=== PATIENT | female | born 1985 | race Caucasian/White ===

== ENCOUNTER 2022-03-17 15:33 | Emergency (ER) | payer SELFPAY ==
--- OUTSIDE RECORDS SUMMARY | 2022-03-17 15:41 | XMS REPORT | Continuity of Care Document ---
:1985 Author Organization [facility] t Address [address] [place] [address] Dr. Bour[address] [place] [address] Care Team Providers Name Role Phone Batsheva Martines Attending Clinician [phone] Nikhil CARROLL, Gage Mae Attending Clinician Ramila Patterson Attending Clinician Nikhil CARROLL, Gage Mae Admitting Clinician Andrew Edwards Admitting Clinician Payers Payer Name Policy Type Policy Number Effective Date Expiration Date S ource Problems Condition Condition Condition Status Onset Resolution Last Treating Co mments Source Name Details Category Date Date Treatment Clinician Date Routine Routine Disease Active Univers 8-23 [place] [address] [place] [address] Disease Active Univers (spontaneo (spontaneo 7-24 [place] vaginal [place] [facility] Single Single Disease Active Univers live live 7-24 it y of 00:00: [address] Obesity Obesity Disease Active Univers (BMI (BMI 7-23 ity of 30-39.9) 30-39.9) 00:00: [address] 34 weeks 34 weeks Disease Active Unive rs gestation gestation 7-22 ity of of of 00:00: [place] 00 [facility] UTI in UTI in Disease Active Overview: Univer s 4-25 X2, CHAITANYA ity of 00:00: now neg [address] Supervisio Supervisio Disease Active U nivers n of n of 4-22 ity of high-risk high-risk 00:[place] 00 Medi juan manuel with with Branch insufficie insufficie nt nt care care History of History of Disease Active U nivers depression depression 4-22 it y of 00:00: [address] SDH SDH Diagnosis Active 2016-042017-02-03 Mem oria Active 0-02 23:24:00 l 01/25/2017 00:00: Dayron brady [address] NONTRAUMAT NONTRAUMA Diagnosis Active 2017-02-03 Memoria IC ACUTE TIC ACUTE 23:24:00 l SUBDURAL SUBDURAL Dayron brady HEMORRHAGE HEMORRHAGE Active [facility] [place] [facility] Allergies, Adverse Reactions, Alerts This patient has no known allergies or adverse reactions. Social History Social Habit Start Date Stop Date Quantity Comments Source Alcohol intake [facility] ASSERTION [facility] Sex Assigned At [facility] Social History 2017-01-26 2017-01-26 [facility] 08:18:25 08:18:25 Smoking Status Start Date Stop Date Source Never smoker [facility] Medications Ordered Filled Start Stop Current Ordering Indication Dosage Frequency Signature Comments Components Source Medication Medication Date Date Medication? Clinician (SIG) Name Name buPROPion Yes 150mg 150 mg, Univ ers XL 7-24 Oral, ity of (WELLBUTRIN 14:00: [place] XL) tablet 00 First dose Med ical 150 mg on Wed Branch 11/16/18 at 0900, Until Discontinu ed, Routine zolpidem Yes 5mg 5 mg, Univers (AMBIEN) 7-24 Oral, ity of tablet 5 mg 02:10: QHSPRN, [place] 44 Starting Medical Tue Branch 11/15/18 at 2110, Until Discontinu ed, Routine, Insomnia Iron Fum & 2019- Yes [id number] 1{capsu Take 1 Univers P-FA-Vit B - le} capsule by ity of & C No.9 00:00: mouth [place] (INTEGRA 00 daily. Medical PLUS) 125 Branch mg iron- 1 mg Cap docusate 2018- Yes [id number] 240mg Take 1 Un griselda calcium 240 7-24 capsule by it y of mg capsule 00:00: mouth [place] 00 daily as Medical needed for Branch Constipati on. buPROPion Yes [id number] 150mg Take 1 Univers XL 7-24 tablet by ity of (WELLBUTRIN 00:00: mouth [place] XL) 150 mg 00 daily. Medical 24 hr Branch tablet ibuprofen Yes [id number] 600mg Take 1 U nivers 600 mg 7-24 tablet by ity of tablet 00:00: mouth [place] 00 every 6 Medical (six) Branch hours as needed for Pain (scale 1-3) or Pain (scale 4-6) (Pain). Take with food or milk. Iron Fum & Yes [id number] 1{capsu Take 1 Univers P-FA-Vit B 7-24 le} capsule by ity of & C No.9 00:00: mouth [place] (INTEGRA 00 daily. Medical PLUS) 125 Branch mg iron- 1 mg Cap docusate Yes [id number] 240mg Take 1 Un griselda calcium 240 7-24 capsule by it y of mg capsule 00:00: [place] 00 daily as Medical needed for Branch Constipati on. buPROPion Yes [id number] 150mg Take 1 Univers XL 7-24 tablet by ity of (WELLBUTRIN 00:00: mouth [place] XL) 150 mg 00 daily. Medical 24 hr Branch tablet ibuprofen Yes [id number] 600mg Take 1 U nivers 600 mg 7-24 tablet by ity of tablet 00:00: mouth [place] 00 every 6 Medical (six) Branch hours as needed for Pain (scale 1-3) or Pain (scale 4-6) (Pain). Take with food or milk. Iron Fum & Yes [id number] 1{capsu Take 1 Univers P-FA-Vit B 7-24 le} capsule by ity of & C No.9 00:00: mouth [place] (INTEGRA 00 daily. Medical PLUS) 125 Branch mg iron- 1 mg Cap docusate Yes [id number] 240mg Take 1 Un griselda calcium 240 7-24 capsule by it y of mg capsule 00:00: mouth [place] 00 daily as Medical needed for Branch Constipati on. buPROPion Yes [id number] 150mg Take 1 Univers XL 7-24 tablet by ity of (WELLBUTRIN 00:00: mouth [place] XL) 150 mg 00 daily. Medical 24 hr Branch tablet ibuprofen Yes [id number] 600mg Take 1 U nivers 600 mg -24 tablet by ity of tablet 00:00: mouth [place] 00 every 6 Medical (six) Branch hours as needed for Pain (scale 1-3) or Pain (scale 4-6) (Pain). Take with food or milk. buPROPion 2019- No [id number] 150mg Take 1 Univers XL 11-16 tablet by ity of (WELLBUTRIN 00:00: 00:00 [place] XL) 150 mg 00 :00 daily. Medical 24 hr Branch tablet docusate 2019- No [id number] 240mg Take 1 U nivers calcium 240 11-16 capsule by i ty of mg capsule 00:00: 00:00 mouth once [place] 00 :00 daily as Medical needed for Branch Constipati on. ibuprofen 2019- No [id number] 600mg Take 1 Univers 600 mg 11-16 tablet by ity of tablet 00:00: 00:00 mouth [place] 00 :00 every 6 Medical (six) Branch hours as needed for Pain (scale 1-3) or Pain (scale 4-6) (Pain). Take with food or milk. Iron Fum & 2019- No [id number] 1{capsu Take 1 Univers P-FA-Vit B 11-16 le} capsule by it y of & C No.9 00:00: 00:00 mouth [place] (INTEGRA 00 :00 daily. Medical PLUS) 125 Branch mg iron- 1 mg Cap diphenhydrA Yes 25mg 25 mg, Univ ers MINE 11-15 Oral, ity of (BENADRYL) 17:18: Q6HPRN, [place] tablet 25 17 Starting Medica l mg [facility] 11/15/18 at 1218, Until Discontinu ed, Routine, Sleep, Itching ondansetron Yes 4mg 4 mg, Slow Univers (ZOFRAN 11-15 IV Push, ity of (PF)) 17:18: Q8HPRN, [place] injection 4 17 Starting Medi juan manuel mg [facility] [place] 11/15/18 at 1218, Until Discontinu ed, Routine, Nausea and Vomiting (N/V) simethicone Yes 160mg 160 mg, Un griselda (GAS 11-15 Oral, ity of RELIEF) 17:18: PC+HSPRN, [place] chewable 17 Starting Medical tablet 160 Tue Branch mg 11/15/18 at 1218, Until Discontinu ed, Routine, Gas docusate 2019-0 Yes 240mg 240 mg, Unive rs calcium 11-15 Oral, ity of (SURFAK) 17:18: QDAILYPRN, [place] capsule 240 17 Starting Medi juan manuel mg Tue Branch 11/15/18 at 1218, Until Discontinu ed, Routine, Constipati on magnesium 2018-0 Yes 30mL 30 mL, Univer s hydroxide 11-15 Oral, ity of (MILK OF 17:18: QDAILYPRN, [place] MAGNESIA) 17 Starting Medica l 400 mg/5 mL [facility] Branch suspension 11/15/18 at 30 mL 1218, Until Discontinu ed, Routine, Constipati on acetaminoph 0 Yes 650mg 650 mg, Un griselda en 11-15 Oral, ity of (TYLENOL) 17:18: Q6HPRN, [place] tablet 650 16 Starting Medic al mg e Branch 11/15/18 at 1218, Until Discontinu ed, Routine, Pain (scale 1-3) benzocaine- 2018-0 Yes Topical, Un griselda menthol 11-15 PRN, ity of (DERMOPLAST 17:18: [place] 20-0.5 % 16 e Medical topical 11/15/18 at Branch spray 1218, Until Discontinu ed, Routine, Perineum discomfort ibuprofen 2019-0 Yes 600mg 600 mg, Univ ers (IBU) 11-15 Oral, ity of tablet 600 15:26: Q6HPRN, [place] mg 24 Starting Medical Tue Branch 11/15/18 at 1026, Until Discontinu ed, Routine, Pain (scale 4-6) acetaminoph 2019- No 650mg 650 mg, U nivers en 11-15 0723 Oral, ity of (TYLENOL) 15:17: 17:18 Q6HPRN, [place] tablet 650 52 :22 Starting Medic al mg e Branch 11/15/18 at 1017, Until 11/15/18 at 1218, Routine, Pain (scale 4-6) lactated 2019- No 500mL at 999 Unive rs ringers IV 11-15 mL/hr, 500 it y of infusion 13:30: 13:11 mL, IV [place] 500 mL 00 :00 Infusion, Medical ONCE, 1 Branch dose, 11/15/18 at 0830, Routine proMETHazin 2018- No 12.5mg 12.5 mg, Univers e 11-15 IV ity of (PHENERGAN) 09:15: 11:21 Piggyback, [place] 12.5 mg in 00 :00 ONCE, 1 Medica l NaCl 0.9% dose, Tue Branc h (NS) 50 mL 11/15/18 at IV 0415, piggyback Routine nalbuphine 2018- No 10mg 10 mg, Univ ers (NUBAIN) 11-15 Intravenou ity of injection 09:15: 09:58 s, ONCE, 1 [place] 10 mg 00 :00 dose, Tu Medical 11/15/18 at Branch 0415, Routine LR 1000 mL 2018- No 2mU/min 2 Uni vers + oxytocin 11-15 brad-unit it y of 20 units IV 06:01: 17:18 s/min (6 [place] Solution 54 :22 mL/hr), at Medic al 6 mL/hr, Branch IV Infusion, TITRATE, Starting 11/15/18 at 0101, Until 11/15/18 at 1218, KENY, Oxytocin Induction / Augmentati on of Labor. D5W-LR IV 2018- No 1000mL at 125 Uni vers infusion 11-15 mL/hr, IV ity o f 1,000 mL 04:00: 17:18 Infusion, [place] 00 :22 CONTINUOUS Medical , Starting Branch 11/14/18 at 2300, Until Wed11/15/18 at 1218, Routine sodium 2018- No 30mL 30 mL, Univers citrate-cit 11-15 Oral, ity of brien acid 03:55: 13:10 PRE-PROCED [place] (BICITRA) 55 :00 URE ONCE, Medic al 500-334 1 dose, Branch mg/5 mL Starting solution 30 Mon mL 11/14/18 at 2255, Until Discontinu ed, Routine, Surgery/Pr ocedure buPROPion 2019- No [id number] 150mg Take 1 Univers XL 6-12 24 tablet by ity of (WELLBUTRIN 00:00: 00:[place] XL) 150 mg 00 :00 daily. Medical 24 hr Branch tablet PNV 67-iron 2019- No [id number] 1{each} Take 1 Univers ps-folate 08-30 Each by ity of no.1-dha 00:00: 00:00 mouth [place] (VITAFOL 00 :00 daily. Medical ULTRA) 29 Branch mg iron- 1 mg-200 mg Cap Nitrofurant 2019- No [id number] 100mg Take 1 Univers oin&Nit. 08-18 capsule by ity of Macrocryst 00:00: 00:00 mouth 2 [place] (MACROBID) 00 :00 (two) Medical 100 mg times Branch capsule daily. tramadol 2016-04 No Notes: Not Mem oria hydrochlori 0-05 to exceed l de 50 MG 14:55: 400mg/day. Her duran Oral Tablet 00 (Same As: Ultram) ondansetron 2016-04 Yes 4 mg = 1 Me moria 4 mg oral 0-05 tab, PO, l tablet 14:06: Q8H, PRN [place] 00 Nausea, # 90 tab, 0 Refill(s) Zofran 2016-04 No Notes: Memoria 0-05 (Same as: l 13:47: Zofran) [place] 00 tramadol 2016-04 Yes 50 mg = 1 Drew koby hydrochlori 0-05 tab, PO, l de 50 MG 11:11: Q12H, PRN Herm yong Oral Tablet 00 Pain Score 4-6, X 14 day, # 28 tab, 0 Refill(s) Levetiracet 2016-04 Yes 500 mg = 1 Memoria am 500 MG 0-05 tab, PO, l Oral Tablet 11:06: Q12H, # 10 [place] 00 tab, 0 Refill(s) celecoxib 2016-04 Yes 200 mg = 1 Me moria 200 mg oral 0-05 cap, PO, l capsule 11:06: BID, # 28 Yuliana nn 00 cap, 0 Refill(s) remove 2016-04 No Notes: Memoria patch 0-05 Remove l 02:00: patch 12 [place] 00 hours after applicatio n each day. Lidocaine 2016-04 No Notes: Memori a 0.05 MG/MG 0-04 Apply only l Transdermal 15:00: once for He rmann Patch 00 up to 12 hours in a 24-hour period (12 hours on and 12 hours off). (Same as: Lidoderm) "Remove old patch before applicatio n of new patch" Celebrex 2016-04 No Notes: Memoria 0-04 NSAID. l 14:00: Please [place] 00 check indication . Not for seizure. (Same As: CeleBREX) tramadol 2016-04 No Notes: Not Mem oria hydrochlori 0-04 to exceed l de 50 MG 13:44: 400mg/day. Her duran Oral Tablet 00 (Same As: Ultram) heparin 2016-04 No Notes: Memoria sodium, 0-04 porcine l porcine 13:00: heparin [place] 2500 UNT/ML 00 Injectable Solution Acetaminoph 2016-04 No Notes: Do M emoria en 325 MG / 0-04 not exceed l Hydrocodone 02:11: 4gm/day of [place] Bitartrate 00 acetaminop 10 MG Oral hen. (Same Tablet as: [place] [[place] 325/10) ] Morphine 2016-04 No 2 mg, 0.5 Drew koby 0-03 mL, Route: l 18:43: IVP, Drug [place] 00 form: SOLN, Q2H, Dosing Weight 61.364, kg, PRN Pain Score 7-10, Start date: 01/26/17 13:43:00 CDT, Duration: 30 day, Stop date: 02/25/17 13:42:00 CDT Tylenol 2016-04 No Notes: Max Drew koby 0-03 acetaminop l 17:00: hen 4000 [place] 00 mg/day (4 gm/day). (Same as: Tylenol Extra Strength) Dilaudid 2016-04 No Notes: Memoria 0-03 Same as: l 15:38: Dilaudid [place] 00 tramadol 2016-04 No 50 mg, 1 Memor ia hydrochlori 0-03 tab, l de 50 MG 14:28: Route: PO, Her duran Oral Tablet 00 Drug form: TAB, Q4H, Dosing Weight 61.364, kg, PRN Pain Score 4-6, Start date: 01/26/17 9:28:00 CDT, Duration: 30 day, Stop date: 02/25/17 9:27:00 CDT influenza 2016-04 No Notes: Memori a virus 0-03 (Same as: l vaccine, 14:00: Fluzone Dayron n inactivated 00 Quadrivale nt, Fluarix Quadrivale nt) For 3 years of age and older (0.5 mL IM) Shake well before use Saline 2016-04 No Notes: Memoria Flush 0.9% 0-03 Same as: l 14:00: BD [place] 00 Posiflush Sterile Docusate 2016-04 No Notes: Memoria 0-03 (Same as: l 14:00: Colace) [place] (Do Not Crush) sennosides, 2016-04 No Notes: Drew koby RETIREMENT 0-03 (Same as: l 14:00: Senokot) [place] Levetiracet 2016-04 No Notes: Drew koby am 0-03 (Same l 14:00: as:Keppra) [place] Ondansetron 2016-04 No Notes: Drew koby 0-03 (Same as: l 07:27: Zofran) [place] 00 MEDICATION WASTE Product Size: 4 mg Product Wasted: ___ mg Dextrose 2016-04 No 6.25 gm, Memor ia 50% Syringe 0-03 12.5 mL, l 06:44: Route: Mcgrann IVP, Drug Form: INJ, kg, PRN, PRN Abnormal Lab Result, Start date: 01/26/17 1:44:00 CDT, Duration: 30 day, Stop date: 02/25/17 1:43:00 CDT Regular 2016-04 No 60 units) Drew koby Insulin, 0-03 WASTE: F/P l Human 100 06:44: - Black; E He rmann UNT/ML 00 - Injectable Municipal Solution Trash Bin Stable for 28 days at room temperatur e Expires in days from ____Date Saline 2016-04 No Notes: Memoria Flush 0.9% 0-03 Same as: l 06:44: BD [place] 00 Posiflush Sterile Ondansetron 2016-04 No Notes: Drew koby 0-03 (Same as: l 06:44: Zofran) Chalino MEDICATION WASTE Product Size: 4 mg Product Wasted: ___ mg Morphine 2016-04 No Notes: Memoria 0-03 (Same l 06:44: as:MORPhin Mcgrann 00 e Sulfate) Acetaminoph 2016-04 No Notes: Drew koby en 325 MG / 0-03 (Same as: l Hydrocodone 06:44: [place] Yuliana nn Bitartrate 00 325/5) Do 5 MG Oral not exceed Tablet 4gm/day of acetaminop hen. sodium 2016-04 No 1,000 mL, Memori a chloride 0-03 Rate: 100 l 0.9% 1000 06:44: ml/hr, Dayron n ml INJ 00 Infuse 1,000 mL over: 10 hr, Route: IV, Total Volume: 1,000, Start date: 01/26/17 1:44:00 CDT, Duration: 30 day, Stop date: 02/25/17 1:43:00 CDT Morphine 2016-04 No Notes: Memoria 0-03 (Same l 06:13: as:MORPhin Mcgrann 00 e Sulfate) Zofran 2016-04 No Notes: Memoria 0-03 (Same as: l 06:13: Zofran) [place] 00 MEDICATION WASTE Product Size: 4 mg Product Wasted: ___ mg Keppra 2016-04 No Notes: Memoria 0-03 Same as l 06:13: Keppra Mix with 100 mL NS, LR or D5W MEDICATION WASTE Product Size: 500 mg Product Wasted: ___ mg Immunizations Ordered Filled Immunization Date Status Comments [facility] e Immunization Name Name Tdap 2018-10-18 Completed [facility] 00:00:00 [facility] Tdap 2018-10-18 Completed University 00:00:00 [facility] Tdap 2018-10-18 Completed [facility] 00:00:00 [facility] Influenza Virus 2018-08-15 Completed Universit y of Vaccine Quad .5 mL 00:00:00 [facility] 6+ MO [place] Influenza Virus 2018-08-15 Completed Universit y of Vaccine Quad .5 mL 00:00:00 [facility] IM 6+ MO Branch Influenza Virus 2018-08-15 Completed Universit y of Vaccine Quad .5 mL 00:00:00 [facility] IM 6+ MO Branch influenza virus 2017-01-26 Completed [facility] [place] vaccine, 13:38:00 inactivated Vital Signs Vital Name Observation Time Observation Value Comments Source Body height 2018-12-16 14:57:00 149.9 cm Universi ty of [facility] Body weight 2018-12-16 14:57:00 68.04 kg Universi ty of [facility] BMI 2018-12-16 14:57:00 30.30 kg/m2 Universi ty of [facility] Systolic blood 2018-12-16 14:57:00 115 mm[Hg] Univer sity of pressure [facility] Diastolic blood 2018-12-16 14:57:00 77 mm[Hg] Unive rsity of pressure [facility] Heart rate 2018-12-16 14:57:00 93 /min Universi ty of [facility] Body temperature 2018-12-16 14:57:00 36.67 Leanne [facility] ersity of [facility] Respiratory rate 2018-12-16 14:57:00 16 /min Univ ersity of [facility] Systolic blood 2018-11-17 13:00:00 123 mm[Hg] Univer sity of pressure [facility] Diastolic blood 2018-11-17 13:00:00 81 mm[Hg] Unive rsity of pressure [facility] Heart rate 2018-11-17 13:00:00 85 /min Universi ty of [facility] Body temperature 2018-11-17 13:00:00 36.61 Leanne [facility] ersity of [facility] Respiratory rate 2018-11-17 13:00:00 17 /min Univ [facility] Oxygen saturation in 2018-11-17 13:00:00 99 /min [facility] Arterial blood by [facility] Pulse oximetry Branch Body weight 2018-11-15 05:12:00 72.485 kg Universi ty of [facility] BMI 2018-11-15 05:12:00 32.26 kg/m2 Universi ty of [facility] Body height 2018-11-15 03:12:00 149.9 cm Universi ty of [facility] Temperature Oral (F) 2017-01-28 13:29:00 97.6 F [facility] [place] Heart Rate 2017-01-28 13:29:00 [facility] [place] Respitory Rate 2017-01-28 13:29:00 Memori al [place] Systolic (mm Hg) 2017-01-28 13:29:00 Drew rial [place] Diastolic (mm Hg) 2017-01-28 13:29:00 Mem orial [place] Heart Rate 2017-01-28 09:00:00 [facility] [place] Systolic (mm Hg) 2017-01-28 09:00:00 Drew rial [place] Diastolic (mm Hg) 2017-01-28 09:00:00 Mem orial [place] Respitory Rate 2017-01-28 09:00:00 Memori al [place] Temperature Oral (F) 2017-01-28 09:00:00 98.2 F [facility] [place]gr[place] Respitory Rate 2017-01-28 05:00:00 Memori al [place] Systolic (mm Hg) 2017-01-28 05:00:00 Drew rial [place] Diastolic (mm Hg) 2017-01-28 05:00:00 Mem orial [place] Heart Rate 2017-01-28 05:00:00 [facility] [place] Temperature Oral (F) 2017-01-28 05:00:00 98.8 F [facility] [place] Weight 2017-01-26 08:13:00 [facility] [place] BMI Calculated 2017-01-26 08:13:00 Memori al [place] Height 2017-01-26 08:13:00 [facility] Procedure Date / Time Performing Clinician Source Performed CBC WITH DIFFERENTIAL 2018-11-16 09:01:00 [facility] VENOUS CORD GAS 2018-11-15 15:06:00 Luann [facility] CBC WITH DIFFERENTIAL 2018-11-15 04:59:00 [facility] TYPE AND SCREEN 2018-11-15 04:55:00 Luann [facility] HEPATITIS B SURFACE 2018-11-15 04:52:00 Onur Kong [facility] ANTIGEN [facility] GC & CHLAMYDIA AMPLIFIED 2018-11-15 04:52:00 Luann [facility] GROUP B STREPTOCOCCUS BY 2018-11-15 04:52:00 Onur Kong [facility] PCR [facility] VZV ANTIBODY SCREEN 2018-11-15 04:51:00 Onur Kong [facility] GALV ONLY - SYPHILIS 2018-11-15 04:51:00 Onur Kong [facility] IGG/IGM [facility] Encounters Start End Encounter Admission Attending Care Care Encounter Source Date/Time Date/Time Type Type Clinicians Facility Department ID 2018-12-16 2018-12-16 Routine Akinsipe, [facility] [id number] Univers 09:49:46 10:27:55 Batsheva C STUD [employer] [id number] ity of Visit [facility] 4.2.7.2.686 [place] as MATERNAL [id number] Med ical & CHILD [address] [place] [address] 2018-11-21 2018-11-21 1.2.840.1 [id number] Univers 00:00:00 00:00:00 Encounter [id number] ity of 3.104.2.7 4.[place].7.2.696 [place] [id number] [facility] 2018-11-14 2018-11-17 [facility] MARIE Tejead [id number] [facility] 21:52:34 16:41:00 Encounter Gage DEVRIES 350.1.13.10 ity of HOSPITAL 4.2.7.2.686 [place] [id number] [address] 2017-02-18 2017-02-18 [id number] Memoria 12:00:00 12:00:00 00 [facility] 2017-01-26 2017-01-28 Inpatient [facility] [id number] Memoria 05:23:00 15:33:00 [facility]othy [facility] 2017-01-26 2017-01-28 Outpatient Leonardo [facility] [id number] 00:23:00 10:33:00 Ramila 00 Results Test Description Test Time Test Comments Results Result Comments Source GROUP B STREPTOCOCCUS BY PCR 2018-11-16 13:18:00 Test Item Value Reference Range Interpretation Comme nts Group B Streptococcus by PCR (test code = 80330-8) Negative Neg ative Lab Interpretation (test code = 38114-6) Normal [facility] WITH [id number] 09:36:00 Test Item Value Reference Range Interpretation Comments WBC (test code = See_Comment H [Automated 6690-2) message] The sy stem which generated this result transmitted reference range : 4.30 - 11.10 10*3/?L. The reference range was not used to interpret this result as normal/abnormal . RBC (test code = See_Comment L [Automated 789-8) message] The sy stem which generated this result transmitted reference range : 3.93 - 5.25 10*6/?L. The reference range was not used to interpret this result as normal/abnormal . HGB (test code = 11.2 g/dL 11.6-15 L 718-7) HCT (test code = 35.0 % 35.7-45.2 L 4544-3) MCV (test code = 91.9 fL 80.6-95.5 787-2) MCH (test code = 29.4 pg 25.9-32.8 785-6) MCHC (test code = 32.0 g/dL 31.6-35.1 786-4) RDW-SD (test code = 45.5 fL 39-49.9 08552-1) RDW-CV (test code = 13.5 % 12-15.5 788-0) PLT (test code = See_Comment [Automated 777-3) message] The sy stem which generated this result transmitted reference range : 166 - 358 10*3/ ?L. The reference r mary kate was not used to interpret this result as normal/abnormal . MPV (test code = 10.0 fL 9.5-12.9 03870-4) NRBC/100 WBC (test See_Comment [Automat ed code = 1225576148) message] The system which generated this result transmitted reference range : 0.0 - 10.0 /100 WBCs. The refer ence range was not u sed to interpret th is result as normal/abnormal . NRBC x10^3 (test code <0.01 See_Comment [Auto mated = 7748208239) message] The s ystem which generated this result transmitted reference range : 10*3/?L. The reference range was not used to interpret this result as normal/abnormal . GRAN MAT (NEUT) % 75.9 % (test code = 770-8) IMM GRAN % (test code 1.60 % = 2692836336) LYMPH % (test code = 15.3 % 736-9) MONO % (test code = 6.5 % 5905-5) EOS % (test code = 0.2 % 713-8) BASO % (test code = 0.5 % 706-2) GRAN MAT x10^3(ANC) 9.60 10*3/uL 1.88-7.09 H (test code = 5574138072) IMM GRAN x10^3 (test 0.20 10*3/uL 0-0.06 H code = 3580076147) LYMPH x10^3 (test code 1.94 10*3/uL 1.32-3.29 = 731-0) MONO x10^3 (test code 0.82 10*3/uL 0.33-0.92 = 742-7) EOS x10^3 (test code = <0.03 0.03-0.39 L 711-2) BASO x10^3 (test code 0.06 10*3/uL 0.01-0.07 = 704-7) Lab Interpretation Abnormal (test code = 74265-0) [facility] CHLAMYDIA AMPLIFIED [id number] 16:12:00 Test Item Value Reference Range Interpretation Comments Lab Interpretation (test code = Normal 44711-3) [facility] CORD [id number] 15:22:00 Test Item Value Reference Range Interpretation Comments VENOUS BASE EXCESS, mEq/L CORD (test code = 1703097434) VENOUS PH, CORD (test 7.25-7.45 code = 1805864641) VENOUS PC02, CORD See_Comment [Automate d message] The (test code = system which ge nerated 5366864488) this result tra nsmitted reference range : 27 - 49 mmHg. The refer ence range was not used to interpret this result as normal/abnormal . VENOUS PO2, CORD (test See_Comment [Aut omated message] The code = 9266606735) system wh [facility] generated this result tra nsmitted reference range : 17 - 41 mmHg. The refer ence range was not used to interpret this result as normal/abnormal . VENOUS BICARBONATE, See_Comment [Automa carolina message] The CORD (test code = system whi ch generated [id number]) this result tra nsmitted reference range : 12 - 29 mEq/L. The refe rence range was not used to interpret this result as normal/abnormal . [facility] America[facility] CORD [id number] 15:21:00 Test Item Value Reference Range Interpretation Comments BASE EXCESS, CORD mEq/L (test code = 1763588041) AC PH, CORD (BEAKER) 7.18-7.38 (test code = 1395304841) PC02, CORD (test code See_Comment [Auto mated message] The = [id number]) system which g enerated this result transmit carolina reference range : 32 - 66 mmHg. The refer ence range was not used to interpret this result as normal/abnormal . PO2, CORD (test code See_Comment [Autom ated message] The = [id number]) system which g enerated this result transmit carolina reference range : 10 - 30 mmHg. The refer ence range was not used to interpret this result as normal/abnormal . BICARBONATE, CORD See_Comment [Automate d message] The (test code = system which ge nerated this [id number]) result transmit carolina reference range : 17 - 27 mEq/L. The refe rence range was not used to interpret this result as normal/abnormal . 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 [facility] ONLY - SYPHILIS IGG/[id number] 13:28:00 Test Item Value Reference Range Interpretation Comments Syphilis IgG/IgM (test Non-reactive Non-reactive code = 78587-8) FABIAN (test code = FABIAN) Non-reactive - No serologic evidence of T. pallidum infection. Cannot exclude incubating or early syphilis. Submit a second specimen in 2-4 weeks if syphilis is clinically suspected.Equivocal - Further testing to follow.Reactive - Further testing to follow. Lab Interpretation (test Normal code = 26289-4) [facility] AmericaHepatitis B Surface Kmctvgt7773-19-16 06:09:00 Test Item Value Reference Range Interpretation Comments HBsAg Semi-Quantitative (test code = 5195-3) [facility] AmericaType and Screen - ONCE [id number] 05:39:35 Test Item Value Reference Range Interpretation Comments ABO & RH (test code B POSITIVE Performe d at [facility] = 20) Laboratory Serv [facility]3 [address] [facility] s [address]Khgt Free: [phone] A No. [id number] IAT (test code = Negative Performed a t [facility] 1185) Laboratory Serv [facility] [address] [facility] s [address]Elzt Free: [phone] A No. [id number] [facility] AmericaCBC WITH XLQUJVMUBLVZ6958-91-91 05:20:00 Test Item Value Reference Range Interpretation Comments WBC (test code = See_Comment H [Automated 6180-2) message] The system which generated this result transmit carolina reference range : 4.30 - 11.10 10*3/?L. The reference range was not used to interpret this result as normal/abnormal . RBC (test code = See_Comment [Automated 155-8) message] The system which generated this result transmit carolina reference range : 3.93 - 5.25 10*6/?L. The reference range was not used to interpret this result as normal/abnormal . HGB (test code = 12.3 g/dL 11.6-15 718-7) HCT (test code = 38.4 % 35.7-45.2 4544-3) MCV (test code = 90.8 fL 80.6-95.5 787-2) MCH (test code = 29.1 pg 25.9-32.8 785-6) MCHC (test code = 32.0 g/dL 31.6-35.1 786-4) RDW-SD (test code = 44.3 fL 39-49.9 04435-1) RDW-CV (test code = 13.3 % 12-15.5 788-0) PLT (test code = See_Comment [Automated 777-3) message] The system which generated this result transmit carolina reference range : 166 - 358 10*3/ ?L. The reference range was not u sed to interpret th is result as normal/abnormal . MPV (test code = 9.8 fL 9.5-12.9 58781-6) NRBC/100 WBC (test See_Comment [Automat ed code = [id number]) message] The system which generated this result transmit carolina reference range : 0.0 - 10.0 /100 WBCs. The reference range was not used to interpret this result as normal/abnormal . NRBC x10^3 (test code <0.01 See_Comment [Auto mated = [id number]) message] The system which generated this result transmit carolina reference range : 10*3/?L. The reference range was not used to interpret this result as normal/abnormal . GRAN MAT (NEUT) % 89.0 % (test code = 770-8) IMM GRAN % (test code 1.30 % = 3888606211) LYMPH % (test code = 7.5 % 736-9) MONO % (test code = 1.8 % 5905-5) EOS % (test code = 0.1 % 713-8) BASO % (test code = 0.3 % 706-2) GRAN MAT x10^3(ANC) 11.94 10*3/uL 1.88-7.09 H (test code = 8614704480) IMM GRAN x10^3 (test 0.17 10*3/uL 0-0.06 H code = 9716194277) LYMPH x10^3 (test code 1.01 10*3/uL 1.32-3.29 L = 731-0) MONO x10^3 (test code 0.24 10*3/uL 0.33-0.92 L = 742-7) EOS x10^3 (test code = <0.03 0.03-0.39 L 711-2) BASO x10^3 (test code 0.04 10*3/uL 0.01-0.07 = 704-7) Lab Interpretation Abnormal (test code = 98890-2) [facility]2017-10-05 10:27:00 Test Item Value Reference Range Interpretation Comments eGFR (test code = eGFR) 139 [facility]2017-10-05 10:27:00 Test Item Value Reference Range Interpretation Comments BUN (test code = BUN) 8 7-22 [facility]2017-10-05 10:27:00 Test Item Value Reference Range Interpretation Comments Creatinine Lvl (test code = Creatinine 0.41 0.50-1.40 Lvl) [facility]2017-10-05 10:27:00 Test Item Value Reference Range Interpretation Comments Sodium Lvl (test code = Sodium Lvl) 137 135-145 [facility]2017-10-05 10:27:00 Test Item Value Reference Range Interpretation Comments Potassium Lvl (test code = Potassium 3.4 3.5-5.1 Lvl) [facility]2017-10-05 10:27:00 Test Item Value Reference Range Interpretation Comments Glucose Lvl (test code = Glucose Lvl) 59 70-99 [facility]2017-10-05 10:27:00 Test Item Value Reference Range Interpretation Comments Chloride Lvl (test code = Chloride Lvl) 103 95-109 [facility]2017-10-05 10:27:00 Test Item Value Reference Range Interpretation Comments CO2 (test code = CO2) 20 24-32 [facility]2017-10-05 10:27:00 Test Item Value Reference Range Interpretation Comments Calcium Lvl (test code = Calcium Lvl) 8.2 8.5-10.5 [facility]2017-10-05 10:27:00 Test Item Value Reference Range Interpretation Comments AGAP (test code = AGAP) 17.4 10.0-20.0 [facility] CenterVerjmkjWMGETUJLLM5142-79-98 10:27:00 Test Item Value Reference Range Interpretation Comments Monocytes # (test code 0.5 See_Comment [Aut omated message] The = Monocytes #) system which generated this result tra nsmitted reference range : <=0.8. The reference r mary kate was not used to int erpret this result as normal/abnormal . [facility] CenterYzxhhmhYOQZDWFYUB7411-87-62 10:27:00 Test Item Value Reference Range Interpretation Comments Basophils (test code = 0.3 See_Comment [Aut omated message] The Basophils) system which ge nerated this result tra nsmitted reference range : <=1.0. The reference r mary kate was not used to int erpret this result as normal/abnormal . [facility] CenterEsxxsxeKWHKPGFONX7034-25-30 10:27:00 Test Item Value Reference Range Interpretation Comments Monocytes (test code = Monocytes) 9.1 2.0-12.0 [facility] CenterFglyjodKNHAXLQGGK9861-51-77 10:27:00 Test Item Value Reference Range Interpretation Comments Lymphocytes (test code = Lymphocytes) 26.3 20.0-40.0 [facility] CenterDfuhfmfAZHIPVEWRT7980-95-13 10:27:00 Test Item Value Reference Range Interpretation Comments Segs-Bands # (test code = Segs-Bands #) 3.3 1.5-8.1 [facility] CenterCbidqbaVYGLUVFCXI3371-68-25 10:27:00 Test Item Value Reference Range Interpretation Comments Lymphocytes # (test code = Lymphocytes 1.4 1.0-5.5 #) [facility] CenterUebcficQRONWORCLP5323-29-87 10:27:00 Test Item Value Reference Range Interpretation Comments Eosinophils (test code = 0.5 See_Comment [A utomated message] The Eosinophils) system which ge nerated this result tra nsmitted reference range : <=4.0. The reference r mary kate was not used to int erpret this result as normal/abnormal . [facility] CenterRvkoiffGNZPXSJHJX8918-14-13 10:27:00 Test Item Value Reference Range Interpretation Comments Segs (test code = Segs) 63.8 45.0-75.0 [facility] CenterPeqdmsxGGEFTBGDDT6851-48-40 10:27:00 Test Item Value Reference Range Interpretation Comments MCHC (test code = MCHC) 34.3 32.0-36.0 [facility] CenterKswfdegWNNDVDALHH6465-70-67 10:27:00 Test Item Value Reference Range Interpretation Comments RDW (test code = RDW) 12.1 11.5-14.5 [facility] CenterGlcyfcdGVQICARBVA6112-80-60 10:27:00 Test Item Value Reference Range Interpretation Comments Platelet (test code = Platelet) 151 133-450 [facility] CenterXldrlhnCGWNXDRROW6703-90-66 10:27:00 Test Item Value Reference Range Interpretation Comments MPV (test code = MPV) 8.6 7.4-10.4 [facility] CenterDnusnrlPISRVJPLEA6999-17-64 10:27:00 Test Item Value Reference Range Interpretation Comments RBC (test code = RBC) 3.58 4.20-5.40 [facility] CenterAhkgdxvDEIBVJIIOD6147-97-00 10:27:00 Test Item Value Reference Range Interpretation Comments Hgb (test code = Hgb) 11.6 12.0-16.0 [facility] CenterRxaeeehWZZJMVTTJZ7494-18-15 10:27:00 Test Item Value Reference Range Interpretation Comments Hct (test code = Hct) 33.9 36.0-48.0 [facility] CenterSthmddmKWGDCAISZF6171-54-96 10:27:00 Test Item Value Reference Range Interpretation Comments MCV (test code = MCV) 94.7 80.0-98.0 [facility] CenterFlzksmnLGNPZPOIMO2031-88-17 10:27:00 Test Item Value Reference Range Interpretation Comments MCH (test code = MCH) 32.5 pg 27.0-31.0 [facility] CenterPnyekiuPKNPYANWEL1800-64-63 10:27:00 Test Item Value Reference Range Interpretation Comments WBC (test code = WBC) 5.2 3.7-10.4 [facility]UnacjbiEVAITRJCLHBZ4594-90-87 10:10:00 Test Item Value Reference Range Interpretation Comments AGAP (test code = AGAP) 11.7 10.0-20.0 [facility] MichiganPqeguefQQOIUWACJLTI5398-46-58 10:10:00 Test Item Value Reference Range Interpretation Comments eGFR (test code = eGFR) 128 [facility] MichiganIyizvoxKYBZWHROAGVP7697-17-63 10:10:00 Test Item Value Reference Range Interpretation Comments Chloride Lvl (test code = Chloride Lvl) 106 95-109 [facility] MichiganItldwrcQFJKHGWVJHYA7902-24-12 10:10:00 Test Item Value Reference Range Interpretation Comments Calcium Lvl (test code = Calcium Lvl) 8.4 8.5-10.5 [facility] MichiganBcoyajlZYSYFOEKPTKA1749-13-75 10:10:00 Test Item Value Reference Range Interpretation Comments Creatinine Lvl (test code = Creatinine 0.53 0.50-1.40 Lvl) [facility] MichiganOijudbdRDHPIGDUXNSD2174-39-18 10:10:00 Test Item Value Reference Range Interpretation Comments Sodium Lvl (test code = Sodium Lvl) 138 135-145 [facility] MichiganIqedpxrZOLRADCBNSZV8571-53-89 10:10:00 Test Item Value Reference Range Interpretation Comments Potassium Lvl (test code = Potassium 3.7 3.5-5.1 Lvl) [facility] MichiganPioujkvMTCMINLAXNBX7583-94-25 10:10:00 Test Item Value Reference Range Interpretation Comments CO2 (test code = CO2) 24 24-32 [facility] MichiganYgxkvnkYTLKVVGPSYQL1655-97-73 10:10:00 Test Item Value Reference Range Interpretation Comments BUN (test code = BUN) 12 7-22 [facility] MichiganMeqnvumKEGOLRVYGICB1666-33-57 10:10:00 Test Item Value Reference Range Interpretation Comments Glucose Lvl (test code = Glucose Lvl) 87 70-99 [facility] CenterRverusnRTMUNBUJCK8121-06-50 10:10:00 Test Item Value Reference Range Interpretation Comments WBC (test code = WBC) 5.6 3.7-10.4 [facility] CenterCkpmptnTXWHNQDDLZ5116-90-47 10:10:00 Test Item Value Reference Range Interpretation Comments RBC (test code = RBC) 3.48 4.20-5.40 [facility] CenterIpjciteIWBMCLUKKA3229-29-07 10:10:00 Test Item Value Reference Range Interpretation Comments MCHC (test code = MCHC) 34.2 32.0-36.0 [facility] CenterKfowdyrCXQCXIJVDH2627-98-62 10:10:00 Test Item Value Reference Range Interpretation Comments MCV (test code = MCV) 95.4 80.0-98.0 [facility] CenterXvdxjlwDAUGSYQNJN8862-24-53 10:10:00 Test Item Value Reference Range Interpretation Comments Hct (test code = Hct) 33.2 36.0-48.0 [facility] CenterNjqvlneSHKFIRRODC0168-70-36 10:10:00 Test Item Value Reference Range Interpretation Comments MCH (test code = MCH) 32.6 pg 27.0-31.0 [facility] CenterFpklvoxYKQQKMQHHQ8511-83-96 10:10:00 Test Item Value Reference Range Interpretation Comments Hgb (test code = Hgb) 11.4 12.0-16.0 [facility] CenterRyhcgueJNKQSNVYTM3582-93-23 10:10:00 Test Item Value Reference Range Interpretation Comments Platelet (test code = Platelet) 164 133-450 [facility] CenterIsamqllXMQZRYCPWK9807-86-58 10:10:00 Test Item Value Reference Range Interpretation Comments RDW (test code = RDW) 12.7 11.5-14.5 [facility] CenterIehqxfvBMQHDOGTOE5024-71-19 10:10:00 Test Item Value Reference Range Interpretation Comments MPV (test code = MPV) 7.7 7.4-10.4 [facility] CenterTeatltjCYCQGZAPFC0006-42-51 10:10:00 Test Item Value Reference Range Interpretation Comments Eosinophils (test code = 0.4 See_Comment [A utomated message] The Eosinophils) system which ge nerated this result tra nsmitted reference range : <=4.0. The reference r mary kate was not used to int erpret this result as normal/abnormal . [facility] CenterUlromcfDSFDZUBZEC8895-92-49 10:10:00 Test Item Value Reference Range Interpretation Comments Segs (test code = Segs) 67.0 45.0-75.0 [facility] CenterCzqucpsTJIAECNFHA8211-56-49 10:10:00 Test Item Value Reference Range Interpretation Comments Lymphocytes (test code = Lymphocytes) 20.9 20.0-40.0 [facility] CenterEdwiwfvDGMZRVLKMV5971-01-72 10:10:00 Test Item Value Reference Range Interpretation Comments Monocytes (test code = Monocytes) 11.4 2.0-12.0 [facility] CenterTmrnatjHYOONJBBWN1624-47-28 10:10:00 Test Item Value Reference Range Interpretation Comments Basophils (test code = 0.3 See_Comment [Aut omated message] The Basophils) system which ge nerated this result tra nsmitted reference range : <=1.0. The reference r mary kate was not used to int erpret this result as normal/abnormal . [facility] CenterZcrcfxkWHKBPRNHRE0689-80-21 10:10:00 Test Item Value Reference Range Interpretation Comments Monocytes # (test code 0.6 See_Comment [Aut omated message] The = Monocytes #) system which generated this result tra nsmitted reference range : <=0.8. The reference r mary kate was not used to int erpret this result as normal/abnormal . [facility] CenterIvvclucYTNYQBNPUF2920-27-04 10:10:00 Test Item Value Reference Range Interpretation Comments Segs-Bands # (test code = Segs-Bands #) 3.8 1.5-8.1 [facility] CenterVkammodKJFDNQDQLA8449-21-71 10:10:00 Test Item Value Reference Range Interpretation Comments Lymphocytes # (test code = Lymphocytes 1.2 1.0-5.5 #) [facility] MichiganLsmlkaoDDSSMULBZCCF6354-83-92 06:25:00 Test Item Value Reference Range Interpretation Comments CO2 (test code = CO2) 23 24-32 [facility] MichiganRfmqtotCZFPPUNCZAWX1981-49-70 06:25:00 Test Item Value Reference Range Interpretation Comments Potassium Lvl (test code = Potassium 3.6 3.5-5.1 Lvl) [facility] MichiganUumwhhtAMEIEKLSUPLH2112-04-98 06:25:00 Test Item Value Reference Range Interpretation Comments Chloride Lvl (test code = Chloride Lvl) 104 95-109 [facility] MichiganByhrrieKTVTXLEYLCZG6919-76-42 06:25:00 Test Item Value Reference Range Interpretation Comments Glucose Lvl (test code = Glucose Lvl) 103 70-99 [facility] MichiganOjqkvndLVPBKJDKJDBG6396-05-74 06:25:00 Test Item Value Reference Range Interpretation Comments BUN (test code = BUN) 10 7-22 [facility] MichiganNtxglpgWMCMVEDMUUAA7390-61-14 06:25:00 Test Item Value Reference Range Interpretation Comments Creatinine Lvl (test code = Creatinine 0.69 0.50-1.40 Lvl) [facility] CenterDqcdavaIPPVOPMEZA9443-90-29 06:25:00 Test Item Value Reference Range Interpretation Comments MPV (test code = MPV) 7.0 7.4-10.4 [facility] CenterLfldggsFMAQJPJATF2298-45-33 06:25:00 Test Item Value Reference Range Interpretation Comments Platelet (test code = Platelet) 239 133-450 [facility] CenterObrsgdnDCTHNOBJVK5455-08-25 06:25:00 Test Item Value Reference Range Interpretation Comments RDW (test code = RDW) 13.2 11.5-14.5 [facility] CenterTzaojybAQTQRSUNBX9111-39-55 06:25:00 Test Item Value Reference Range Interpretation Comments WBC (test code = WBC) 8.7 3.7-10.4 [facility] CenterPstahcpVIMAKPJYVK9802-70-69 06:25:00 Test Item Value Reference Range Interpretation Comments MCHC (test code = MCHC) 33.4 32.0-36.0 [facility] CenterQrbxmrmYRXAVEKBIZ5746-80-69 06:25:00 Test Item Value Reference Range Interpretation Comments MCH (test code = MCH) 31.4 pg 27.0-31.0 [facility] CenterCbxoiihLUCVSYHLOK0935-11-64 06:25:00 Test Item Value Reference Range Interpretation Comments Hgb (test code = Hgb) 12.5 12.0-16.0 [facility] CenterYpcxbtzATWMMZFLEU6273-59-67 06:25:00 Test Item Value Reference Range Interpretation Comments RBC (test code = RBC) 3.96 4.20-5.40 [facility] CenterDsgozqyNECCFZOXTD2411-16-90 06:25:00 Test Item Value Reference Range Interpretation Comments MCV (test code = MCV) 94.1 80.0-98.0 [facility] CenterHauanjoCFSYWILIMJ2745-50-97 06:25:00 Test Item Value Reference Range Interpretation Comments Hct (test code = Hct) 37.3 36.0-48.0 [facility] CenterQyiuuipGQLUJFAIPM1903-47-87 06:25:00 Test Item Value Reference Range Interpretation Comments G-value Rapid (test code = G-value 7.7 5.0-11.6 Rapid) [facility] CenterKpsunowQKQNNLOMWY6290-58-62 06:25:00 Test Item Value Reference Range Interpretation Comments Estimated % Lysis Rapid 2.9 See_Comment [Au tomated message] The (test code = Estimated syste m which generated % Lysis Rapid) this result t ransmitted reference range : <=7.5. The reference r mary kate was not used to int erpret this result as normal/abnormal . [facility] CenterFavkfqaGFNJYWKCBX9640-96-68 06:25:00 Test Item Value Reference Range Interpretation Comments R-time Rapid (test code = R-time 0.2 min 0.4-0.7 Rapid) [facility] CenterQazjygrDFYXYBOLTX7262-94-93 06:25:00 Test Item Value Reference Range Interpretation Comments Split Point Rapid (test code = Split 0.2 min Point Rapid) [facility] CenterJbtwkygITODQVTIDM9462-65-33 06:25:00 Test Item Value Reference Range Interpretation Comments ACT (TEG) Rapid (test code = ACT (TEG) 74 s 86-118 Rapid) [facility] CenterKveauzoLGPHOAGFNJ4092-88-11 06:25:00 Test Item Value Reference Range Interpretation Comments Max Amplitude Rapid (test code = Max 61 mm 52-71 Amplitude Rapid) [facility] CenterMbvieqiEBMVHQOGJA5723-00-44 06:25:00 Test Item Value Reference Range Interpretation Comments Angle Rapid (test code = Angle 76 degrees 64-80 Rapid) [facility] CenterGqsdqnpVFVBIECZBU7361-92-64 06:25:00 Test Item Value Reference Range Interpretation Comments K-time Rapid (test code = K-time 1.2 min 0.6-2.3 Rapid) [facility] CenterUkblofkRKMBMZBBQA8248-99-43 06:25:00 Test Item Value Reference Range Interpretation Comments Monocytes # (test code 0.4 See_Comment [Aut omated message] The = Monocytes #) system which generated this result tra nsmitted reference range : <=0.8. The reference r mary kate was not used to int erpret this result as normal/abnormal . [facility] CenterApgosmyKLQWTUJJZK7442-89-13 06:25:00 Test Item Value Reference Range Interpretation Comments Eosinophils (test code = 7.1 See_Comment [A utomated message] The Eosinophils) system which ge nerated this result tra nsmitted reference range : <=4.0. The reference r mary kate was not used to int erpret this result as normal/abnormal . [facility] CenterStlqncnKDWAIZMJAM0752-11-06 06:25:00 Test Item Value Reference Range Interpretation Comments Lymphocytes # (test code = Lymphocytes 1.3 1.0-5.5 #) [facility] CenterDdwzdlyAIVXPCXCXE7365-38-79 06:25:00 Test Item Value Reference Range Interpretation Comments Segs-Bands # (test code = Segs-Bands #) 6.4 1.5-8.1 [facility] CenterXmzzwsiXJXHNNQDDH0944-53-25 06:25:00 Test Item Value Reference Range Interpretation Comments Eosinophils # (test code 0.6 See_Comment [A utomated message] The = Eosinophils #) system [facility] generated this result tra nsmitted reference range : <=0.5. The reference r mary kate was not used to int erpret this result as normal/abnormal . [facility] CenterUiffovwQJYNKECWIO4005-40-00 06:25:00 Test Item Value Reference Range Interpretation Comments Monocytes (test code = Monocytes) 4.4 2.0-12.0 [facility] CenterBrkrnbgNLXTSXYLDI8191-58-10 06:25:00 Test Item Value Reference Range Interpretation Comments Basophils (test code = 0.3 See_Comment [Aut omated message] The Basophils) system which ge nerated this result tra nsmitted reference range : <=1.0. The reference r mary kate was not used to int erpret this result as normal/abnormal . [facility] CenterGvlwpncHKAKYQRVUA0541-09-77 06:25:00 Test Item Value Reference Range Interpretation Comments Lymphocytes (test code = Lymphocytes) 14.9 20.0-40.0 [facility] CenterBdzgoezLMJWEUEGXL2503-64-53 06:25:00 Test Item Value Reference Range Interpretation Comments Segs (test code = Segs) 73.3 45.0-75.0 [facility] CenterAtnbinuROPWHHNIDB9809-65-89 06:25:00 Test Item Value Reference Range Interpretation Comments INR (test code = INR) 0.97 0.85-1.17 [facility] CenterQebsvzoLSMMKISASM5050-05-63 06:25:00 Test Item Value Reference Range Interpretation Comments PTT (test code = PTT) 24.1 s 22.9-35.8 [facility] CenterKlpiddtSAUMETRMRC3353-63-20 06:25:00 Test Item Value Reference Range Interpretation Comments PT (test code = PT) 13.1 s 12.0-14.7 [facility] MichiganElfzpodCVXSWUZQXKLC3630-60-61 06:25:00 Test Item Value Reference Range Interpretation Comments AGAP (test code = AGAP) 13.6 10.0-20.0 [facility] MichiganMqsedkgCEQTGQGGLFER4178-26-54 06:25:00 Test Item Value Reference Range Interpretation Comments eGFR (test code = eGFR) 117 [facility] MichiganVjzeidaCOVEDPOZLWGD6774-96-05 06:25:00 Test Item Value Reference Range Interpretation Comments Calcium Lvl (test code = Calcium Lvl) 8.2 8.5-10.5 [facility] MichiganRogebibIYEHLHDYSOEY0115-84-57 06:25:00 Test Item Value Reference Range Interpretation Comments Sodium Lvl (test code = Sodium Lvl) 137 135-145 [facility]
[2022-03-17] MEDS ORDERED: ACETAMINOPHEN 325 MG TABLET ONE (16:02)
[2022-03-17] MEDS ORDERED: TETANUS & DIPHTHERIA TOX,ADULT 0.5 ML VIAL ONE (16:03)
[2022-03-17 17:27] LABS: Urine Blood Trace-intact (Negative); Urine Glucose Negative (Negative); Urine Protein Negative (Negative); Urine Specific Gravity 1.025 (1.005-1.030)
[2022-03-17 17:36] LABS: Urine Specific Gravity/Preg 1.025 (1.005-1.030)
--- NOTE | 2022-03-17 17:52 | RAD REPORT ---
EXAM DESCRIPTION: RAD - Shoulder Left 2 View - 03/17/2022 5:23 pm CLINICAL HISTORY: PAIN COMPARISON: No comparisons FINDINGS/IMPRESSION: No acute fracture. No malalignment. No significant focal degenerative changes.
--- NOTE | 2022-03-17 18:17 | RAD REPORT ---
EXAM DESCRIPTION: CT - CTHCSPWOC - 03/17/2022 6:05 pm CLINICAL HISTORY: Trauma, head and neck injury. fall COMPARISON: Head C Spine Mpr Wo Con dated 01/25/2017 TECHNIQUE: Axial 5 mm thick images of the head were obtained. Axial 2 mm thick images of the cervical spine were obtained with sagittal and coronal reconstruction images generated and reviewed. All CT scans are performed using dose optimization technique as appropriate and may include automated exposure control or mA/KV adjustment according to patient size. FINDINGS: CT HEAD WITHOUT CONTRAST: No acute hemorrhage, hydrocephalus or extra-axial collection is identified.No areas of brain edema or midline shift. The paranasal sinuses and mastoids are clear.The calvarium is intact. CT CERVICAL SPINE WITHOUT CONTRAST: No fracture or subluxation.No prevertebral soft tissues swelling is identified. IMPRESSION: No acute intracranial or cervical spine findings.
[2022-03-17] MEDS ORDERED: LIDOCAINE 1% MPF 5 ML VIAL ONE (18:36)
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
[2022-03-17 19:29] VITALS: TEMP 98.5; O2SAT 100
[2022-03-17 19:30] VITALS: BP 116/86
== END 2022-03-17 19:22 | disposition home or self-care (01) ==
LOC: ER 15:33
PROC: 0JQ00ZZ Repair Scalp Subcutaneous Tissue and Fascia, Open Approach (ICD-10-PCS; principal; 2022-03-17)
DX: S01.01XA Laceration without foreign body of scalp, initial encounter (principal); M54.2 Cervicalgia; M25.512 Pain in left shoulder; Z23 Encounter for immunization; F17.210 Nicotine dependence, cigarettes, uncomplicated
CPT/HCPCS: 70450; 72125; 81003; 81025; 90714; J2001

== ENCOUNTER → 2023-06-10 | Emergency (ER) | payer SELFPAY ==
[2023-06-11 00:38] LABS: Absolute Lymphocytes (CBC) 2.8 K/uL (0.7-4.9); Hematocrit 38.5 % (36.0-45.0); Lymphocytes % 35.7 % (15.3-44.8); MCV 92.7 fL (80-100); MPV 7.4 fL (7.6-11.3); Platelets 283 thou/uL (152-406); RBC Red Blood Cell Count 4.15 M/uL (3.86-4.86); Specific Gravity 1.018 (1.005-1.030)
[2023-06-11 00:53] LABS: Protime INR 0.92
[2023-06-11 01:00] LABS: Specific Gravity 1.018 (1.005-1.030); Urine Bacteria <20 /HPF (<20); Urine Bilirubin NEGATIVE (Negative); Urine Blood 3+ (OVER) (Negative); Urine Clarity Turbid (Clear); Urine Color Colorless (Yellow); Urine Crystals Unidentified Few /HPF (None Seen); Urine Glucose NEGATIVE (Negative); Urine Protein NEGATIVE (Negative); Urine RBC >50 /HPF (None Seen); Urine Urobilinogen Normal (Normal)
[2023-06-11 01:22] LABS: Barbiturates NEGATIVE (NEGATIVE); Benzodiazepines NEGATIVE (NEGATIVE); Cocaine NEGATIVE (NEGATIVE); METHAMPHETAM NEGATIVE (NEGATIVE); Methadone NEGATIVE (NEGATIVE); Opiates NEGATIVE (NEGATIVE); Phencyclidine NEGATIVE (NEGATIVE); THC Cannibis NEGATIVE (NEGATIVE)
[2023-06-11 01:34] LABS: ALT/SGPT 41 U/L (13-56); AST/SGOT 24 U/L (15-37); Albumin 3.5 g/dL (3.4-5.0); Alkaline Phosphatase 75 U/L (45-117); BUN Blood Urea Nitrogen 18 mg/dL (7-18); Bicarbonate 24 mEq/L (21-32); Bilirubin Total 0.1 mg/dL (0.2-1.0); Glomerular Filtration Rate 116 ml/min (=/>90); Glucose Level 99 mg/dL (74-106); Potassium 3.8 mEq/L (3.5-5.1); Protein, Total 7.5 g/dL (6.4-8.2); Sodium Level 140 mEq/L (136-145)
[2023-06-11 01:36] LABS: Bilirubin Direct < 0.1 mg/dL (0-0.2); Bilirubin Indirect, Calculated ND mg/dL (0.2-0.8)
--- NOTE | 2023-06-11 07:33 | EDPHYS ---
Physician Documentation [facility] Name: Ronda Arias Age: 37 yrs Sex: Female : 1985 Arrival Date: 06/10/2023 Time: 23:10 Bed 19 Private MD: ED Physician Mateusz Teresa HPI: 06/11 00:36 This 37 yrs old Female presents to ER via Ambulatory with complaints of Doesn't Feel rt Right. 00:36 Patient presents to the ED with depression. Patient make statements such as would be rt better if she were not here. When pressed on this, she did not say that she was suicidal. Denies homicidal ideation, or visual donations. Denies physical symptoms at this time, symptoms are moderate in severity, no other aggravating or alleviating factors.. Historical: - Allergies: 06/10 23:35 No Known Allergies; rv - Home Meds: 23:35 None [Active]; rv - PMHx: 23:35 Depressive disorder; rv - PSHx: 23:35 None; rv - Immunization history:: Adult Immunizations up to date. - Social history:: Smoking status: Patient denies any tobacco usage or history of. - Family history:: not pertinent. ROS: 06/11 00:36 Constitutional: Negative for fever, chills, and weight loss, Cardiovascular: Negative rt for chest pain, palpitations, and edema, Respiratory: Negative for shortness of breath, cough, wheezing, and pleuritic chest pain, Abdomen/GI: Negative for abdominal pain, nausea, vomiting, diarrhea, and constipation, Skin: Negative for injury, rash, and discoloration, Neuro: Negative for headache, weakness, numbness, tingling, and seizure, Psych: Positive for depression, Negative for homicidal ideation, Exam: 00:36 Constitutional: This is a well developed, well nourished patient who is awake, alert, rt and in no acute distress. Head/Face: Normocephalic, atraumatic. Chest/axilla: Normal chest wall appearance and motion. Nontender with no deformity. No lesions are appreciated. Cardiovascular: Regular rate and rhythm with a normal S1 and S2. No gallops, murmurs, or rubs. Normal PMI, no JVD. No pulse deficits. Respiratory: Lungs have equal breath sounds bilaterally, clear to auscultation and percussion. No rales, rhonchi or wheezes noted. No increased work of breathing, no retractions or nasal flaring. Abdomen/GI: Soft, non-tender, with normal bowel sounds. No distension or tympany. No guarding or rebound. No evidence of tenderness throughout. Skin: Warm, dry with normal turgor. Normal color with no rashes, no lesions, and no evidence of cellulitis. MS/ Extremity: Pulses equal, no cyanosis. Neurovascular intact. Full, normal range of motion. Neuro: Awake and alert, GCS 15, oriented to person, place, time, and situation. Cranial nerves II-XII grossly intact. Motor strength 5/5 in all extremities. Sensory grossly intact. Cerebellar exam normal. Normal gait. 00:36 ECG was reviewed by the Attending Physician. 00:36 Psych: Mood depressed, affect congruent, somewhat evasive with questioning. Vital Signs: 06/10 23:30 BP 120 / 81; Pulse 99; Resp 18; Temp 98.4; Pulse Ox 97% ; Weight 61.23 kg; Height 4 ft. rv 10 in. ; 06/11 05:54 BP 112 / 80; Pulse 76; Resp 18; Temp 98; Pulse Ox 100% on R/A; rv 08:01 BP 118 / 78; Pulse 71; Resp 16; Temp 97.5; Pulse Ox 99% on R/A; iw 06/10 23:30 Body Mass Index 28.21 (61.23 kg, 147.32 cm) rv [place] Coma Score: 05:54 Eye Response: spontaneous(4). Motor Response: obeys commands(6). Verbal Response: rv oriented(5). Total: 15. MDM: 06/10 23:41 Patient medically screened. rt 06/11 07:07 Differential Diagnosis altered mental status. Data reviewed: vital signs, nurses notes, alex lab test result(s), EKG. Consideration of Admission/Observation Escalation of care including admission/observation considered. I considered the following discharge prescriptions or medication management in the emergency department Medications were administered in the Emergency Department. See MAR. Independent interpretation of the following test(s) in the Emergency Department EKG: See my EKG interpretation above. Test considered but Not performed: CT: no ct head. Historians other than the Patient: patient well informed. Care significantly affected by the following chronic conditions: depression. Counseling: I had a detailed discussion with the patient and/or guardian regarding the historical points, exam findings, and any diagnostic results supporting the discharge/admit diagnosis, lab results. 06/10 23:56 Order name: Acetaminophen; Complete Time: 01:37 rt 06/10 23:56 Order name: Basic Metabolic Panel; Complete Time: 01:37 rt 06/10 23:56 Order name: CBC with Diff; Complete Time: 01:03 rt 06/10 23:56 Order name: ETOH Level; Complete Time: 01:37 rt 06/10 23:56 Order name: Hepatic Function; Complete Time: 01:37 rt 06/10 23:56 Order name: PT-INR; Complete Time: :03 rt 06/10 23:56 Order name: Test, Urine; Complete Time: 01:03 rt 06/10 23:56 Order name: Ptt, Activated; Complete Time: 01:03 rt 06/10 23:56 Order name: Salicylate; Complete Time: 01:37 rt 06/10 23:56 Order name: Urinalysis w/ reflexes; Complete Time: 01:03 rt 06/10 23:56 Order name: Urine Drug Screen; Complete Time: 01:37 rt 06/11 02:19 Order name: ETOH Level: redraw 4 hours after first; Complete Time: 05:45 rt 06/10 23:56 Order name: EKG; Complete Time: 23:56 rt 06/10 23:56 Order name: EKG - Nurse/Tech; Complete Time: 00:05 rt 06/10 23:56 Order name: IV Saline Lock; Complete Time: 00:05 rt 06/10 23:56 Order name: Labs collected and sent; Complete Time: 00:05 rt 06/10 23:56 Order name: Suicide Screening ([place]); Complete Time: 00:05 rt EC:36 Rate is 86 beats/min. Rhythm is regular, Normal Sinus Rhythm with No ectopy. QRS [place] rt is Normal. AR interval is normal. QRS interval is normal. QT interval is normal. No Q waves. T waves are Normal. No ST changes noted. Interpreted by me. Administered Medications: 07:30 CANCELLED (Duplicate Order): ns 0.9% 1000 ml IV at 1 bolus Per protocol; 1000 mL bolus alex Disposition Summary: 06/11/23 07:32 Discharge Ordered Notes: Location: Home alex Problem: new alex Symptoms: have improved alex Condition: Stable alex Diagnosis - Other recurrent depressive disorders alex Followup: alex - With: Private Physician - When: 2 - 3 days - Reason: Recheck today's complaints, Continuance of care, Re-evaluation by your physician Followup: alex - With: Arnulfo Cardona MD - When: 2 - 3 days - Reason: Recheck today's complaints, Re-evaluation by your physician Discharge Instructions: - Supporting Someone With Depression alex - Managing Depression, Adult alex - Discharge Summary Sheet ty Forms: - Medication Reconciliation Form alex - Thank You Letter alex - Antibiotic Education alex - Prescription Opioid Use alex - Patient Portal Instructions alex - Leadership Thank You Letter alex - SBAR form ty Signatures: Dispatcher [employer] EDMateusz Ware MD MD cha Williams, Irene RN RN Leonard Heller RN RN Andrew Negrete MD MD rt Corrections: (The following items were deleted from the chart) 06/10 23:36 23:35 PMHx: None; rv rv 06/11 07:30 07:06 NS 0.9% IV 1000 ml IV at 1 bolus Per protocol; 1000 mL bolus ordered. alex alex 07:30 07:29 NS 0.9% IV 1000 ml IV at 1 bolus Per protocol; 1000 mL bolus ordered. emmanuel johnson
--- NOTE | 2023-06-11 07:33 | ER ---
Nurse's Notes [facility] Name: Ronda Arias Age: 37 yrs Sex: Female : 1985 Arrival Date: 06/10/2023 Time: 23:10 Bed 19 Private MD: Diagnosis: Other recurrent depressive disorders Presentation: 06/10 23:30 Chief complaint: Patient states: diagnosed with depression back in [place], not rv been on medication x4 years because of insurance issues, today has been feeling down and depressed for months. per family, needs to be seen in the ED. denies SI/HI. Coronavirus screen: At this time, the client does not indicate any symptoms associated with coronavirus-19. Ebola Screen: No symptoms or risks identified at this time. Initial Sepsis Screen: Does the patient meet any 2 criteria? No. Patient's initial sepsis screen is negative. Does the patient have a suspected source of infection? No. Patient's initial sepsis screen is negative. Risk Assessment: Do you want to hurt yourself or someone else? Patient reports no desire to harm self or others. Onset of symptoms was June 10, 2023. 23:30 Method Of Arrival: Ambulatory rv 23:30 Acuity: LIONEL 2 rv Triage Assessment: 23:35 General: Appears uncomfortable, Behavior is depressed. Pain: Denies pain. Neuro: Level rv of Consciousness is awake, alert, obeys commands, Oriented to person, place, time, situation. Cardiovascular: Capillary refill < 3 seconds Patient's skin is warm and dry. Respiratory: Airway is patent Respiratory effort is even, unlabored. GI: No signs and/or symptoms were reported involving the gastrointestinal system. : No signs and/or symptoms were reported regarding the genitourinary system. Derm: Skin is intact. Historical: - Allergies: 23:35 No Known Allergies; rv - Home Meds: 23:35 None [Active]; rv - PMHx: 23:35 Depressive disorder; rv - PSHx: 23:35 None; rv - Immunization history:: Adult Immunizations up to date. - Social history:: Smoking status: Patient denies any tobacco usage or history of. - Family history:: not pertinent. Screenin:37 [facility] ED Fall Risk Assessment (Adult) History of falling in the last 3 months, rv including since admission No falls in past 3 months (0 pts) Score/Fall Risk Level 0 - 2 = Low Risk Oriented to surroundings, Maintained a safe environment, Educated pt \\T\\ family on fall prevention, incl call for assistance when getting out of bed, Assessed \\T\\ reinforced patient's understanding of fall precautions. Abuse screen: Denies threats or abuse. Denies injuries from another. Nutritional screening: No deficits noted. Tuberculosis screening: No symptoms or risk factors identified. Assessment: 06/11 05:53 Reassessment: pt continuous to deny having SI/HI. rv 05:54 Reassessment: awaiting blood alcohol level result, pending psych evaluation. pt is rv cooperative. slept comfortably on the stretcher through the shift. denies pain at this time. 07:27 Reassessment: [facility] recommends to have pt follow up outpatient with [place] iw office. 08:02 Reassessment: Patient appears in no apparent distress at this time. Patient and/or iw family updated on plan of care and expected duration. Pain level reassessed. Patient is alert, oriented x 3, equal unlabored respirations, skin warm/dry/pink. Patient states feeling better. Patient states symptoms have improved. Vital Signs: 06/10 23:30 BP 120 / 81; Pulse 99; Resp 18; Temp 98.4; Pulse Ox 97% ; Weight 61.23 kg; Height 4 ft. rv 10 in. ; 06/11 05:54 BP 112 / 80; Pulse 76; Resp 18; Temp 98; Pulse Ox 100% on R/A; rv 08:01 BP 118 / 78; Pulse 71; Resp 16; Temp 97.5; Pulse Ox 99% on R/A; iw 06/10 23:30 Body Mass Index 28.21 (61.23 kg, 147.32 cm) rv [place] Coma Score: 05:54 Eye Response: spontaneous(4). Motor Response: obeys commands(6). Verbal Response: rv oriented(5). Total: 15. ED Course: 06/10 23:15 Patient arrived in ED. kj1 23:17 Andrew Negrete MD is Attending Physician. rt 23:35 Triage completed. rv 23:35 Arm band placed on right wrist. rv 23:37 Patient has correct armband on for positive identification. Client placed on continuous rv cardiac and pulse oximetry monitoring. NIBP monitoring applied. 06/11 00:03 Leonard Heller, RN is Primary Nurse. rv 00:40 No provider procedures requiring assistance completed. Inserted saline lock: 20 gauge rv in right hand, using aseptic technique. 05:46 Contacted [facility] for patient evaluation for statement of "It'd be better if I ty wasn't here living" with history of depressive disorder. 07:06 Attending Physician role handed off by Andrew Negrete MD alex 07:06 Mateusz Teresa MD is Attending Physician. alex 07:31 Arnulfo Cardona MD is Referral Physician. alex 08:02 IV discontinued, intact, bleeding controlled, No redness/swelling at site. Pressure iw dressing applied. Administered Medications: 07:30 CANCELLED (Duplicate Order): ns 0.9% 1000 ml IV at 1 bolus Per protocol; 1000 mL bolus alex Medication: 06/10 23:37 VIS not applicable for this client. rv Outcome: 06/11 07:32 Discharge ordered by . alex 08:03 Patient left the ED. iw Signatures: Mateusz Teresa MD MD cha Williams, Irene, RN RN Leonard Heller, BRANDON RN rv Tiara Smith [email or web address] Andrew Negrete MD MD rt Bonilla Stone Corrections: (The following items were deleted from the chart) 06/10 23:36 23:35 PMHx: None; rv rv
[2023-06-11 08:28] VITALS: BP 118/78; TEMP 97.5; O2SAT 99
--- NOTE | 2023-06-11 15:01 | EKG ---
Test Date: 2023-06-11 Test Time: 00:32:57 Riverboat Master: RV MEASUREMENT RESULTS: Intervals: Rate: 86 ID: [id number] QRSD: 78 QT: 376 QTc: 449 [place]: P: 71 ID: [id number] QRS: 41 T: 56 INTERPRETIVE STATEMENTS: Normal sinus rhythm Normal ECG No previous ECG available for comparison Electronically Signed On 06-11-23 14:59:32 NET COORDINATOR by Cresencio Ruiz
== END ==
LOC: ER 23:10
DX: F33.8 Other recurrent depressive disorders (principal)
CPT/HCPCS: 36415; 81001; 93005; 99283

== ENCOUNTER → 2023-07-17 | Emergency (ER) | payer SELFPAY ==
[~2023-07-17] MED LIST: LORazepam 2 MG/ML VIAL ONE; NA CHLORIDE 0.9% 1,000 ML ONE
[2023-07-17 09:57] LABS: Absolute Monocytes 0.6 K/uL (0.1-1.3); Absolute Neutrophil 5.7 K/uL (1.8-8.0); Basophils % 0.5 % (0-1.3); Eosinophils % 0.4 % (0-4.4); Hematocrit 36.5 % (36.0-45.0); Hemoglobin 12.4 g/dL (12.0-15.0); Lymphocytes % 13.1 % (15.3-44.8); MCH 32.2 pg (27.0-35.0); MPV 7.1 fL (7.6-11.3); Monocytes % 8.7 % (3.3-12.3); Neutrophils % 77.3 % (41.7-73.7); Nucleated Red Blood Cells % 0.2 % (0-0); Platelets 230 thou/uL (152-406); RBC Red Blood Cell Count 3.84 M/uL (3.86-4.86); Red Cell Distribution Width 13.9 % (12.1-15.2)
[2023-07-17 10:06] LABS: Specific Gravity > 1.030 (1.005-1.030)
[2023-07-17 10:06] LABS: PT Prothrombin Time 11.3 SECONDS (9.5-12.5); PTT, Activated Partial Thromb 29.1 SECONDS (24.3-36.9); Protime INR 1.03
[2023-07-17 10:07] LABS: Specific Gravity > 1.030 (1.005-1.030); Sqamous Epithelial <5 /HPF (None Seen); Urine Bacteria None Seen /HPF (<20); Urine Bilirubin 1+ (Negative); Urine Blood 2+ (Negative); Urine Clarity Extremely Turbid (Clear); Urine Color Yellow (Yellow); Urine Culture Reflex Order REFLEXED; Urine Glucose NEGATIVE (Negative); Urine Ketones 3+ (Negative); Urine Microscopic Reflex YN ORDER UMIC; Urine Mucus 3+ /HPF (None Seen); Urine Nitrite NEGATIVE (Negative); Urine Protein 1+ (Negative); Urine Urobilinogen 3+ (Normal); Urine WBC 20-50 /HPF (<5); Urine Yeast (Budding) Trace /HPF (None Seen)
[2023-07-17 10:15] LABS: ALT/SGPT 119 U/L (13-56); AST/SGOT 76 U/L (15-37); Alkaline Phosphatase 115 U/L (45-117); Anion Gap 12.6 mEq/L (5.0-15.0); BUN Blood Urea Nitrogen 20 mg/dL (7-18); Bicarbonate 25 mEq/L (21-32); Bilirubin Direct 0.6 mg/dL (0-0.2); Bilirubin Indirect, Calculated 1.1 mg/dL (0.2-0.8); Bilirubin Total 1.7 mg/dL (0.2-1.0); Globulin 4.1 g/dL (2.3-3.5); Glomerular Filtration Rate 115 ml/min (=/>90); Glucose Level 94 mg/dL (74-106); Potassium 3.6 mEq/L (3.5-5.1); Protein, Total 8.1 g/dL (6.4-8.2); Sodium Level 136 mEq/L (136-145)
[2023-07-17 10:23] LABS: Barbiturates NEGATIVE (NEGATIVE); Benzodiazepines NEGATIVE (NEGATIVE); Cocaine NEGATIVE (NEGATIVE); METHAMPHETAM POSITIVE (NEGATIVE); Methadone NEGATIVE (NEGATIVE); Opiates NEGATIVE (NEGATIVE); Phencyclidine NEGATIVE (NEGATIVE); THC Cannibis NEGATIVE (NEGATIVE)
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
[2023-07-17 12:43] VITALS: BP 132/91; TEMP 98.6; O2SAT 100
--- NOTE | 2023-07-19 14:22 | EKG ---
Test Date: 2023-07-17 Test Time: 09:04:25 Global Sales Executive: TIM MEASUREMENT RESULTS: Intervals: Rate: 81 [place]: 136 QRSD: 84 QT: 394 QTc: 457 [place]: P: 76 [place]: 136 QRS: 54 T: 54 INTERPRETIVE STATEMENTS: Normal sinus rhythm Normal ECG Compared to ECG 06/11/2023 00:32:57 No significant changes Electronically Signed On 07-19-23 14:15:15 CDT by Cresencio Ruiz
== END ==
LOC: ER 09:12
DX: F10.10 Alcohol abuse, uncomplicated (principal); F55.8 Abuse of other non-psychoactive substances; T43.625A Adverse effect of amphetamines, initial encounter; N39.0 Urinary tract infection, site not specified
CPT/HCPCS: 36415; 80048; 80076; 80143; 80179; 80307; 81001; 81025; 82077; 85025; 85610; 85730; 87086; 87088; 93005; 96361; 96374; 99284; J7030